=== PATIENT | male | born 1975 | race Caucasian/White ===

== ENCOUNTER 2021-10-21 11:24 | Emergency (ER) | payer OTHER, SELFPAY ==
[2021-10-21 11:27] VITALS: BP 145/76; PULSE 84; RESP 26; TEMP 39.5; O2SAT 97; BMI 26.8
--- NOTE | 2021-10-21 12:20 | RAD_ITS ---
STUDY: X-RAY CHEST REASON FOR EXAM: Male, 46 years old. Cough TECHNIQUE: Single AP portable view of the chest. COMPARISON: None. FINDINGS: Patchy small alveolar infiltrates in the left lung. Increased markings at the right lung base. There is no demonstrated pleural abnormality. Normal size heart. Normal mediastinum and melanie. Normal visualized pulmonary arteries. Normal visualized aortic arch and descending thoracic aorta. Normal visualized thoracic spine. Normal visualized ribs, clavicles, and shoulders. There is no demonstrated abnormality of the visualized soft tissue structures of the upper abdomen. RAD/Chest 1 View (Portable) IMPRESSION: Patchy alveolar infiltrates in the left lung with increased markings at the right lung base. Follow-up is recommended. Electronically Signed: Rodrigo Crenshaw MD at 12:50 EST , Service support ,
--- NOTE | 2021-10-21 12:22 | EX.ED.DYSGE1 ---
HPI History of Present Illness Chief Complaint: Weakness Informant: patient and family Onset/Context/Timing Onset: Today Narrative Narrative: Patient is currently on day 12 of COVID symptoms. He had a positive home test on the day he became symptomatic. Patient felt like he had been doing pretty well but today is generally weak. He had to call family to come help him. He denies chest pain or significant shortness of breath. He has mild cough. He has not taken anything for fever today. [facility] Medical History Hypertension Allergy/AdvReac Type Severity Reaction Status Date / Time No Known Allergies Allergy Verified 10/21/21 11:34 Family History unable to obtain Surgical History unable to obtain Social History Smoking Status: Unknown if ever smoked ROS ROS ED Constitutional Constitutional ED: Reports fever(s) Eyes Eyes: Denies blurry vision or change in vision ENT ENT ED: Denies rhinorrhea or sore throat Cardiovascular Cardiovascular: Denies chest pain or palpitations Respiratory/Chest Respiratory/Chest: Reports cough; Denies dyspnea Gastrointestinal Gastrointestinal: Reports nausea and other Details: Dry heaves ; Denies abdominal pain or diarrhea Musculoskeletal Musculoskeletal: Reports myalgias Neurologic Neurologic: Reports weakness Psychiatric Psychiatric: Denies anxiety or depression Allergic/Immunologic Allergic/Immunologic ED: Denies urticaria EXAM Physical Exam Const Vital Signs: 10/21/21 11:27 10/21/21 11:51 10/21/21 12:46 Temperature 103.1 F H 102.8 F H Temperature Source Oral Oral Pulse Rate 84 95 Respiratory Rate 26 H 22 H Respiratory Effort Normal Non-Labored Blood Pressure 145/76 H 155/95 H Blood Pressure Mean 99 115 Pulse Ox 97 95 Oxygen Delivery Method Room Air Room Air Room Air Positive well nourished and well developed General Appearance ED: well developed HEENT Reports moist mucous membranes Eyes PERRL and EOMs intact bilaterally Neck supple Chest Wall inspection of chest normal and palpation of chest normal Resp normal respiratory effort and clear to auscultation bilaterally Cardio regular rate and regular rhythm GI non-tender Auscultation: hypoactive bowel sounds Palpation: soft Extremity normal to inspection Neuro oriented x3 Neuro Narrative: No focal neurologic deficits Sensorium / Orientation: alert Psych mental status grossly normal Skin no rashes or lesions noted MDM MDM MDM Narrative Medical decision making narrative: Patient was given Tylenol for fever. Lab work and chest x-ray obtained. Lab Data Attestation: I reviewed the patient's lab results. Labs: Laboratory Results - last 24 hr 10/21/21 10/21/21 12:40 12:40 WBC 5.4 RBC 4.93 Hgb 13.9 Hct 41.2 MCV 83.6 MCH 28.2 MCHC 33.7 RDW Std Deviation 37.7 RDW Coeff of Carlos 12.4 Plt Count 170 MPV 11.7 Immature Gran % (Auto) 0.700 Neut % (Auto) 87.8 H Lymph % (Auto) 7.8 L [place] % (Auto) 3.7 Eos % (Auto) 0.0 Baso % (Auto) 0.0 Absolute Neuts (auto) 4.7 Absolute Lymphs (auto) 0.42 L Nucleated RBC % 0 Sodium 136 Potassium 3.8 Chloride 98 Carbon Dioxide 29.0 Anion Gap 9 BUN 16 Creatinine 1.10 Estim Creat Clear Calc 82.13 Est GFR (MDRD) Af Amer 92 Est GFR (MDRD) Non-Af 76 BUN/Creatinine Ratio 14.5 Glucose 113 H Calcium 7.9 L Total Bilirubin 1.00 Direct Bilirubin 0.66 H AST 76 H ALT 85 H Alkaline Phosphatase 122 H Total Protein 6.3 L Albumin 2.8 L Globulin 3.5 Radiography Chest X-Ray - ED: 1 View, Read by ED Physician and Chronic Changes Diagnostic Testing: Clinical Impression(s) from Imaging Studies Chest X-Ray 10/21/21 12:20 IMPRESSION: Patchy alveolar infiltrates in the left lung with increased markings at the right lung base. Follow-up is recommended. Electronically Signed: Rodrigo Crenshaw MD at 12:50 EST , Service support , Treatment and Re-Evaluation Comments:: Lab work reviewed and unremarkable. White count is normal. Chemistry studies normal. LFTs are slightly bumped. Chest x-ray per my interpretation was no obvious infiltrates, radiology does feel that there is some patchy infiltrates in the left lung base which would not be inconsistent with his recent COVID diagnosis. On repeat evaluation patient feels improved. Temperature is 98.7. I did reevaluate his abdomen and he has no tenderness in the right upper quadrant. O2 sats are normal and he will continue to monitor his oxygen saturation at home. He will be discharged home to continue supportive care. Discharge Plan Triage Chief Complaint: Weakness ED Provider: Fatou Duarte Dx/Rx/DC Orders Clinical Impression: Fever Instructions: ED FUO Adult, ED Fever Control (Adult) Primary Care Provider: Jorge Erickson Referrals: Jorge Erickson DO [Primary Care Provider] - 1 Week Disposition Disposition: Home, Self Care
[2021-10-21 12:46] VITALS: BP 155/95; PULSE 95; RESP 22; TEMP 39.3; O2SAT 95
[2021-10-21] MEDS: Acetaminophen 500 MG Tablet 1000 MG PO (12:51)
[2021-10-21 13:04] LABS: Absolute Lymphocyte Count 0.42 X10^3/uL (0.83-4.51); Absolute Neutrophil Count 4.7 X10^3/uL (2.0-7.7); Hematocrit 41.2 % (40-54); Hemoglobin 13.9 g/dL (13.0-16.5); Lymphocyte # 0.42 X10^3/ul (0.83-4.51); Lymphocyte % 7.8 % (19-41); Mean Corp Hgb Conc 33.7 g/dL (32-36); Mean Corpuscular Hgb 28.2 pg (27.0-32.0); Mean Corpuscular Volume 83.6 fL (80-94); Mean Platelet Vol. 11.7 fl (6.2-12.0); Monocyte% 3.7 % (0-10); NRBC Flagged by Analyzer 0 % (0-5); Neutrophil # 4.74 X10^3/uL (2.7-7.7); Neutrophil % 87.8 % (47-70); POSITIVE DIFFERENTIAL YES; Platelet Count 170 K/mm3 (150-450); RBC Distribution Width CV 12.4 % (11.6-14.6); RBC Distribution Width SD 37.7 fl (35.1-43.9); Red Blood Count 4.93 M/mm3 (4.6-6.2); White Blood Count 5.4 K/mm3 (4.4-11.0)
[2021-10-21 13:08] LABS: Differential Indicated SCAN CRITERIA MET
[2021-10-21 13:14] LABS: AST(SGOT) 76 U/L (15-37); Alanine Aminotransfer ALT/SGPT 85 U/L (16-61); Albumin, Serum 2.8 g/dL (3.2-5.0); Alkaline Phosphatase 122 U/L (45-117); Anion Gap 9 (5-15); BUN 16 mg/dL (7-18); BUN/Creat Ratio 14.5 RATIO (10-20); Bilirubin, Direct 0.66 mg/dL (0.00-0.30); Calcium,Total 7.9 mg/dL (8.5-10.1); Chloride 98 mmol/L (98-107); EST Glomerular Filtration Rate 76 mL/min (>60); Est Glom Filt Rate - Afr Amer 92 mL/min (>60); Estimated Creatinine Clearance 82.13 ml/min; Globulin 3.5 g/dL (2.2-4.2); Glucose 113 mg/dL (74-106); Potassium 3.8 mmol/L (3.5-5.1); Protein, Total 6.3 g/dL (6.4-8.2); Sodium Level 136 mmol/L (136-145)
[2021-10-21 14:00] VITALS: BP 137/88; PULSE 80; RESP 16; TEMP 37.1; O2SAT 95
== END 2021-10-21 15:13 | disposition home or self-care (01) ==
PROVIDERS: Emergency Provider Emergency Medicine; PCP Family Medicine; Visit Provider Emergency Medicine
DX: R50.9 Fever, unspecified (principal); R53.1 Weakness; R05.9 Cough, unspecified
CPT/HCPCS: 71045; 80048; 80076; 85025; 87040; 99285; A4216